=== PATIENT | female | born 1955 | race Caucasian/White ===

== ENCOUNTER → 2017-10-08 | Outpatient (CLI) | payer OTHER | LOC: FIMAGING 11:01 | PROVIDERS: ATTEND Family Medicine Sports Medicine | DX: Z12.31 Encounter for screening mammogram for malignant neoplasm of breast (principal) ==

== ENCOUNTER → 2017-10-11 | Outpatient (CLI) | payer OTHER | LOC: FIMAGING 08:45 | PROVIDERS: ATTEND Family Medicine Sports Medicine | DX: N63.12 Unspecified lump in the right breast, upper inner quadrant (principal) ==

== ENCOUNTER → 2017-10-21 | Outpatient (CLI) | payer OTHER ==
[~2017-10-21] MED LIST: BUPIVACAINE 0.5% 30 ML SDV ONE; LIDOCAINE 1% 300 MG/30 ML SDV ONE
== END ==
LOC: FIMAGING 07:21
PROVIDERS: ATTEND Family Medicine
PROC: 0HBT3ZX Excision of Right Breast, Percutaneous Approach, Diagnostic (ICD-10-PCS; principal; 2017-10-21)
DX: C50.911 Malignant neoplasm of unspecified site of right female breast (principal)

== ENCOUNTER → 2017-10-30 | Outpatient (CLI) | payer OTHER | LOC: FIMAGING 07:23 | PROVIDERS: ATTEND Surgery | PROC: C71L1ZZ Planar Nuclear Medicine Imaging of Upper Chest Lymphatics using Technetium 99m (Tc-99m) (ICD-10-PCS; principal; 2017-10-30) | DX: C50.911 Malignant neoplasm of unspecified site of right female breast (principal) | CPT/HCPCS: 78195; A9520 ==

== ENCOUNTER → 2017-11-26 | Outpatient (CLI) | payer OTHER | LOC: BMCIMAGING 14:42 | PROVIDERS: ATTEND Internal Medicine Hematology & Oncology | DX: Z13.820 Encounter for screening for osteoporosis (principal); M85.89 Other specified disorders of bone density and structure, multiple sites; C50.811 Malignant neoplasm of overlapping sites of right female breast; Z78.0 Asymptomatic menopausal state ==

== ENCOUNTER → 2018-03-25 | Outpatient (CLI) | payer OTHER | LOC: FIMAGING 11:16 | PROVIDERS: ATTEND Internal Medicine Hematology & Oncology | DX: Z08 Encounter for follow-up examination after completed treatment for malignant neoplasm (principal); Z98.890 Other specified postprocedural states; Z85.3 Personal history of malignant neoplasm of breast ==

== ENCOUNTER 2018-09-22 13:07 | Emergency (ER) | payer OTHER ==
[2018-09-22] MEDS ORDERED: HYOSCYAMINE SULFATE 0.125 MG TAB PO ONE (13:32)
[2018-09-22] MEDS ORDERED: LIDOCAINE 2% VISCOUS 15 ML UDCUP PO ONE (13:32)
[2018-09-22] MEDS ORDERED: MAG HYDROX/AL HYDROX/SIMETH 30 ML UDCUP PO ONE (13:32)
--- NOTE | 2018-09-22 13:37 | EDPHY ---
H & P Stated Complaint: cp Time Seen by Provider: 09/22/18 13:32 - Personal History Current Tetanus/Diphtheria Vaccine: Yes Current Tetanus Diphtheria and Acellular Pertussis (TDAP): Yes - Medical/Surgical History Hx Asthma: No Hx Chronic Respiratory Disease: No Hx Diabetes: No Hx Cardiac Disease: No Hx Renal Disease: No Hx Cirrhosis: No Hx Alcoholism: No Hx HIV/AIDS: No Hx Splenectomy or Spleen Trauma: No Other PMH: breast CA, lumpectomy, PNA, kidney stone, appy, ovarian cyst, tubaligation, prolapsed rectal repair - Social History Smoking Status: Never smoked Constitutional: Initial Vital Signs Temperature (C) 36.9 C 09/22/18 13:14 Heart Rate 66 09/22/18 13:14 Respiratory Rate 16 09/22/18 13:14 Blood Pressure 124/85 H 09/22/18 13:14 O2 Sat (%) 97 09/22/18 13:14 O2 Delivery Mode Room Air Allergies/Adverse Reactions: No Known Allergies Allergy (Verified 09/22/18 13:12) Home Medications: Medication Instructions Recorded Anastrozole 09/22/18 Aspirin 325 mg (*) 09/22/18 Atorvastatin Calcium 09/22/18 Ibuprofen 09/22/18 Pantoprazole Sodium [Protonix 40mg 40 mg PO DAILY #30 tab 09/22/18 (*)] Xanax 09/22/18 Zoloft 50mg (*) 09/22/18 Medical Decision Making - Diagnostics Imaging: Discussed imaging studies w/ inbound call center agent Radiologist, I viewed and interpreted images myself ED Course/Re-evaluation: CHIEF COMPLAINT: Chest pain, vomiting HISTORY OF PRESENT ILLNESS: The patient is a 62 y/o female with a history of IBS, breast cancer, lumpectomy , and an appendectomy complaining of indigestion, chest pain and vomiting onset at 17:30, 20 hours ago. It initially felt like something was caught in her throat so she tried drinking a fluid which did not improve her symptoms. The pain eventually progressed to feeling like an "elephant sitting on her chest". The pain is not aggravated when she presses on the area of pain. When she lies flat, the pain worsens. Due to these symptoms she took a Xanax last night which did not improve her symptoms. Around 10 years ago she had a heart scan which had a calcium score of 0. She denies fever, headache, shortness of breath, urinary or bowel complaints, numbness, paresthesias. REVIEW OF SYSTEMS: A 10 point review of systems was performed and is negative with the exception of the elements mentioned in the history of present illness. PHYSICAL EXAM: HR, BP, O2 Sat, RR. Temp noted General Appearance: Alert, well hydrated, appropriate, and non-toxic appearing. Head: Atraumatic without scalp tenderness or obvious injury Eyes: Pupils equal, round, reactive to light and accommodation, EOMI, no trauma , no injection. Ears: Clear bilaterally, no perforation, normal landmarks Nose: Atraumatic, no rhinorrhea, clear. Throat: There is no erythema or exudates, no lesions, normal tonsils, mucus membranes moist. Neck: Supple, 2+ carotid upstroke, nontender, no lymphadenopathy. Respiratory: No retractions, no distress, no wheezes, and no accessory muscle use. Lungs are clear to auscultation bilaterally. Cardiovascular: Regular rate and rhythm, no murmurs, rubs, or gallops. Bilateral carotid, radial, dorsalis pedis, and posterior tibial pulses intact. Good capillary refill all extremities. Gastrointestinal: Right upper quadrant tenderness to palpation. Abdomen is soft , nontender, non-distended, no masses, no rebound, no guarding, no peritoneal signs. Musculoskeletal: Normal active ROM of all extremities, atraumatic. Neurological: Alert, appropriate, and interactive. The patient has normal DTRs and non-focal cranial nerves, motor, sensory, and cerebellar exam. Skin: No rashes, good turgor, no nodules on palpation. Past medical history: Breast cancer, pneumonia, kidney stone, ovarian cyst, IBS Past surgical history: Lumpectomy, appendectomy, ruptured ovarian cyst, tubal ligation, prolapsed rectal repair Family history: Mother had AAA at 79 Social history: at bedside, lives in [place], employed DIAGNOSTICS/PROCEDURES/CRITICAL CARE TIME: EKG: The 12 lead EKG was interpreted by myself sinus rhythm with a rate of 62. See hard copy and/or "tracemaster" electronic copy for interpretation. Abdominal US: No acute findings compared to two prior CT's Echo: No cardiac wall motion abnormalities. The ascending aorta is dilated near 4mm. DIFFERENTIAL DIAGNOSIS: The differential diagnosis for the patient's chest pain included but was not limited to myocardial ischemia, pulmonary embolus, chest wall pain, pleural inflammation, and pulmonary infectious causes. MEDICAL DECISION MAKING: The patient is a 62 y/o female with a history of IBS, breast cancer, lumpectomy , and an appendectomy presenting with indigestion, chest pain and vomiting onset at 17:30, 20 hours ago. On exam she has right upper quadrant tenderness to palpation. Labs, EKG, and chest x-ray ordered; GI cocktail administered. 1322: I reviewed patient's EKG as sinus rhythm with a rate of 62. 1351: Reassessed patient after GI cocktail; her symptoms have not improved. I have also discussed her normal EKG and troponin. Abdominal US and additional labs ordered. 1405: Patient will need an Echo, Dr. Wahl, relations mgr, is in agreement with my plan. 1445: I spoke with Hans the wireless field technician; there are no cardiac wall motion abnormalities. The ascending aorta is dilated near 4mm. 1525: I spoke with Dr. Huff, radiologist, regarding patient's abdominal US. There are no acute findings. Patient also has normal labs. She most likely is having reflux and will need follow up with GI. 1536: Reassessed patient and discussed imaging and laboratory findings. I have discussed Protonix prescription and followup with GI. Her first dose of Protonix will be given prior to discharge. Return precautions provided; patient is comfortable with this. - Data Points Laboratory Results: Laboratory Results 09/22/18 13:35 09/22/18 13:35 09/22/18 09/22/18 09/22/18 13:35 13:35 13:25 WBC 6.78 10^3/uL 10^3/uL (3.80-9.50) RBC 4.62 10^6/uL 10^6/uL (4.18-5.33) Hgb 14.2 g/dL g/dL (12.6-16.3) Hct 42.2 % % (38.0-47.0) MCV 91.3 fL fL (81.5-99.8) MCH 30.7 pg pg (27.9-34.1) MCHC 33.6 g/dL g/dL (32.4-36.7) RDW 13.2 % % (11.5-15.2) Plt Count 252 10^3/uL 10^3/uL (150-400) MPV 9.7 fL fL (8.7-11.7) Neut % (Auto) 68.8 % % (39.3-74.2) Lymph % (Auto) 22.7 % % (15.0-45.0) [place] % (Auto) 7.7 % % (4.5-13.0) Eos % (Auto) 0.3 % L % (0.6-7.6) Baso % (Auto) 0.4 % % (0.3-1.7) Nucleat RBC Rel Count 0.0 % % (0.0-0.2) Absolute Neuts (auto) 4.66 10^3/uL 10^3/uL (1.70-6.50) Absolute Lymphs (auto) 1.54 10^3/uL 10^3/uL (1.00-3.00) Absolute Monos (auto) 0.52 10^3/uL 10^3/uL (0.30-0.80) Absolute Eos (auto) 0.02 10^3/uL L 10^3/uL (0.03-0.40) Absolute Basos (auto) 0.03 10^3/uL 10^3/uL (0.02-0.10) Absolute Nucleated RBC 0.00 10^3/uL 10^3/uL (0-0.01) Immature Gran % 0.1 % % (0.0-1.1) Immature Gran # 0.01 10^3/uL 10^3/uL (0.00-0.10) Sodium 138 mEq/L mEq/L (135-145) Potassium 3.8 mEq/L mEq/L (3.5-5.2) Chloride 107 mEq/L mEq/L (97-110) Carbon Dioxide 23 mEq/l mEq/l (22-31) Anion Gap 8 mEq/L mEq/L (6-14) BUN 17 mg/dL mg/dL (7-23) Creatinine 0.8 mg/dL mg/dL (0.6-1.0) Estimated GFR > 60 Glucose 103 mg/dL H mg/dL (70-100) Calcium 9.7 mg/dL mg/dL (8.5-10.4) Total Bilirubin Conjugated Bilirubin Unconjugated Bilirubin AST ALT Alkaline Phosphatase POC Troponin I 0.00 ng/mL ng/mL (0.00-0.08) Total Protein Albumin Lipase 09/22/18 13:24 WBC RBC Hgb Hct MCV MCH MCHC RDW Plt Count MPV Neut % (Auto) Lymph % (Auto) [place] % (Auto) Eos % (Auto) Baso % (Auto) Nucleat RBC Rel Count Absolute Neuts (auto) Absolute Lymphs (auto) Absolute Monos (auto) Absolute Eos (auto) Absolute Basos (auto) Absolute Nucleated RBC Immature Gran % Immature Gran # Sodium Potassium Chloride Carbon Dioxide Anion Gap BUN Creatinine Estimated GFR Glucose Calcium Total Bilirubin 1.6 mg/dL H mg/dL (0.1-1.4) Conjugated Bilirubin 0.3 mg/dL mg/dL (0.0-0.5) Unconjugated Bilirubin 1.3 mg/dL H mg/dL (0.0-1.1) AST 22 IU/L IU/L (14-46) ALT 26 IU/L IU/L (9-52) Alkaline Phosphatase 42 IU/L IU/L (38-126) POC Troponin I Total Protein 7.3 g/dL g/dL (6.3-8.2) Albumin 4.5 g/dL g/dL (3.5-5.0) Lipase 201 IU/L IU/L (23-300) Medications Given: Discontinued Medications Al Hydroxide/Mg Hydroxide (Maalox Susp) 30 ml PO ONCE ONE Stop: 09/22/18 13:33 Last Admin: 09/22/18 13:38 Dose: 30 ml Hyoscyamine Sulfate (Levsin, Hyomax-Sl) 0.25 mg PO ONCE ONE Stop: 09/22/18 13:33 Last Admin: 09/22/18 13:37 Dose: 0.25 mg Lidocaine (Lidocaine 2% Viscous) 15 ml PO ONCE ONE Stop: 09/22/18 13:33 Last Admin: 09/22/18 13:38 Dose: 15 ml Point of Care Test Results: Chemistry 09/22/18 13:25 POC Troponin I 0.00 ng/mL ng/mL (0.00-0.08) Departure - Departure Disposition: Home, Routine, Self-Care Clinical Impression: Acid reflux Qualifiers: Esophagitis presence: esophagitis presence not specified Qualified Code(s): K21.9 - Gastro-esophageal reflux disease without esophagitis Condition: Good Instructions: Gastroesophageal Reflux Disease (ED) Additional Instructions: 1. You most likely are experiencing acid reflux. Take Protonix as prescribed for this. 2. Follow-up with a construction producer within the next week. 3. Return to the Emergency Department for fever, chest pain, shortness of breath , increasing pain or other worsening of condition. Referrals: Mau Davies MD [Primary Care Provider] - As per Instructions Teagan Mohr MD [Medical Doctor] - As per Instructions Prescriptions: Pantoprazole Sodium [Protonix 40mg (*)] 40 mg PO DAILY #30 tab Report Scribed for: Raul Rodriguez Report Scribed by: Janeen Llamas Date of Report: 09/22/18 Time of Report: 13:37
[2018-09-22 13:40] LABS: PLATELET COUNT 252 10^3/uL (150-400)
[2018-09-22] MEDS ORDERED: PANTOPRAZOLE SODIUM 40 MG TAB PO ONE ×2 (15:39→15:40)
[2018-09-22 15:51] VITALS: BP 119/78
--- NOTE | 2018-09-22 16:10 | ECHO ---
[email or web address] [address] [address] Main: [phone] Fax: [email or web address] Echocardiogram Name: OSEAS CHINO MR#: [id number] Study Date: 09/22/2018 Study Time: 02:22 PM Date of : 1955 Age: 62 year(s) Height: 157.5 cm (62 in.) Weight: 53.52 kg (118 lb.) BSA: 1.53 m2 Gender: Female Examination: Echo Indication: Chest Pain Image Quality: Contrast: Requested by: Raul Rodriguez BP: 128 mmHg/84 mmHg Heart Rate: Rhythm: Normal sinus rhythm Indication: Chest Pain Procedure Staff Vehicle Assembly Inspector: Hans Joyce RDCS Reading Physician: Raad Roy MD Requesting Provider: Conclusions: Normal global systolic LV function. EF is 64 %. There is no significant mitral valve regurgitation. The aortic valve is normal in appearance and function. The ascending AO is dilated at 3.7cm to 3.9cm. No obvious dilation of the aortic arch or descending aortic valve.. Measurements: Chambers Valvular Assessment AV/MV Valvular Assessment TV/PV Normal Normal Normal Name Value Range Name Value Range Name Value Range Ao Eliza (MM): 3.3 cm (2.2 cm-3.7 AV Vmax: 1.29 m/s (1 m/s-1.7 PV Vmax: 0.84 m/s (0.6 m/s-0.9 cm) m/s) m/s) IVSd (2D): 0.9 cm (0.6 cm-1.1 AV maxP mmHg ( - ) PV PGmax: 3 mmHg ( - ) cm) LVOT Vmax: 0.92 m/s (0.7 m/s-1.1 LVDd (2D): 4.3 cm (3.9 cm-5.3 m/s) cm) MV E Vmax: 0.63 m/s ( - ) LVDs (2D): 2.8 cm (2.1 cm-4 MV A Vmax: 0.67 m/s ( - ) cm) MV E/A: 0.94 ( - ) LVPWd (2D): 0.9 cm ( - ) LVEF (2D): 64 (>=54 %) Continued Measurements: Chambers Valvular Assessment AV/MV Name Value Name Value LADs Lon.0 cm MV E/E' Septal: 13.50 LA Area: 12.1 cm2 MV E/E' Lateral: 10.30 LA Volume: 28 ml LA Volume Index: 18.3 ml/m2 Patient: OSEAS CHINO Study Date: 09/22/2018 Page 1 of 2 02:22 PM Findings: Left Ventricle: Normal size left ventricle. No LV hypertrophy. Normal global systolic LV function. EF is 64 %. No regional wall motion abnormality. Diastolic dysfunction is present. . Right Ventricle: Normal size right ventricle. Normal RV function. Left Atrium: The left atrium is normal in size. Right Atrium: The right atrium is normal in size. Mitral Valve: The mitral valve is normal in appearance and function. There is no significant mitral valve regurgitation. No mitral stenosis is present. Aortic Valve: The aortic valve is normal in appearance and function. The aortic valve is tri-leaflet. There is no aortic valve regurgitation. No aortic valve stenosis is present. Tricuspid Valve: The tricuspid valve is normal in appearance and function. Pulmonic Valve: The pulmonic valve is normal in appearance and function. Aorta: The ascending AO is dilated at 3.7cm to 3.9cm. No obvious dilation of the aortic arch or descending aortic valve.. Pericardium: Trivial pericardial effusion. (No Signature Object) Patient: OSEAS CHINO Study Date: 09/22/2018 Page 2 of 2 02:22 PM [id number]
--- NOTE | 2018-09-23 17:36 | CPEKG ---
Test Reason : OPEN Blood Pressure : / mmHG Vent. Rate : 062 BPM Atrial Rate : 062 BPM P-R Int : 177 ms QRS Dur : 093 ms QT Int : 443 ms P-R-T Axes : 046 -32 039 degrees QTc Int : 450 ms Sinus rhythm Left axis deviation Confirmed by Raul Rodriguez ([id number]) on 09/23/2018 5:35:30 PM Referred By: Confirmed By:Raul Rodriguez
== END 2018-09-22 15:49 | disposition home or self-care (01) ==
DX: K21.9 Gastro-esophageal reflux disease without esophagitis (principal); Z85.3 Personal history of malignant neoplasm of breast
CPT/HCPCS: 84484-PO

== ENCOUNTER → 2018-10-13 | Outpatient (CLI) | payer OTHER | LOC: FIMAGING 12:00 | PROVIDERS: ATTEND Internal Medicine Hematology & Oncology | DX: Z12.31 Encounter for screening mammogram for malignant neoplasm of breast (principal); Z85.3 Personal history of malignant neoplasm of breast ==